=== PATIENT | male | born 1995 | race Caucasian/White ===

== ENCOUNTER 2017-04-29 00:45 | Emergency (ER) | payer BC, SELFPAY ==
[2017-04-29 00:52] VITALS: BP 134/61; PULSE 91; RESP 16; TEMP 36.7; O2SAT 99; BMI 23.1
--- NOTE | 2017-04-29 01:39 | HMH.EDEAR ---
ED Disposition Clinical Impression: Otitis media Qualifiers: Otitis media type: unspecified Chronicity: acute Qualified Code(s): H66.90 - Otitis media, unspecified, unspecified ear Disposition: Home, Self-Care Condition on Discharge: Good Instructions: DI for Otitis Media (Middle Ear Infection)-Child Additional Instructions: use meds and see pcp for follow up Prescriptions: cephALEXin [Keflex 500mg Cap] 500 mg PO TID #30 cap - Critical Care Critical Care Time: No Attestation: On 04/29/17, the high probability of a clinically significant, sudden or life threatening deterioration of the following system(s) required my full and direct attention, intervention and personal management. The time I documented below is in addition to time spent performing reported procedures but includes the following listed in this critical care notation. Medical Decision Making - Medical Records Medical records reviewed: Yes: I reviewed the patient's medical records. Vital Signs: 04/29/17 00:52 Temperature 98.1 F Temperature Source Oral Pulse Rate [Right Brachial] 91 H Respiratory Rate 16 Blood Pressure [Right Arm] 134/61 Blood Pressure Mean [Right Arm] 85 Blood Pressure Source [Right Arm] Automatic Cuff Blood Pressure Position [Right Arm] Sitting 02 Sat by Pulse Oximetry 99 Oxygen Delivery Method Room Air - Rodríguez Inquiry Pt receiving controlled substance: No Ear HPI - General Chief complaint: Ear Stated complaint: Pain in left ear Time Seen by Provider: 04/29/17 01:39 Mode of Arrival: Ambulatory Source of Information: Patient, Medical Record Limitations: No Limitations Description of Symptoms (Recalled from ER Triage Doc. by RN): WOKE MUP WITH LEFT EAR PAIN - History of Present Illness HPI Narrative: lt ear pain which startred tonight with no fever or rash and no uri sx Complaint: ear pain Location: left ear Duration: constant Severity: moderate Relieving factors: nothing Discharge from ear: no Treatment prior to arrival: none - Related Data Previous Rx's Medication Instructions Recorded cephALEXin [Keflex 500mg Cap] 500 mg PO TID #30 cap 04/29/17 Allergies Allergy/AdvReac Type Severity Reaction Status Date / Time No Known Allergies Allergy Verified 04/29/17 00:[address] [facility] History I have reviewed the patient's past medical history: Yes - *Social History Alcohol Intake: never - Psychiatric History Expresses thoughts of harming self/others: None Suicide Plan Description: No Plan ROS Obtained: Yes All systems reviewed & no additional complaints - Constitutional Constitutional: Denies fever(s) - Eyes Eyes: Denies change in vision - ENT Ears, Nose, Mouth, and Throat: Denies ear discharge, Reports otalgia, Denies sore throat, Denies throat swelling - Cardiovascular Cardiovascular: Denies chest pain at rest - Respiratory Respiratory: No chest congestion, No cough - Gastrointestinal Gastrointestingal: Denies: abdominal pain - Musculoskeletal Musculoskeletal: Denies joint pain, Denies joint stiffness - Integumentary/Breasts Skin/Breast: Denies rash - Neurologic Neurologic: Denies seizure-like activity Physical Exam - General General appearance: alert, in no apparent distress - Head Head exam: normocephalic - Eye Eye exam: Present: PERRL, EOMI - ENT ENT exam: Present: mucous membranes moist - Expanded ENT Exam TM/Canal exam: Left TM: erythema, bulging, effusion - Respiratory Respiratory exam: Absent: respiratory distress - Cardiovascular Cardiovascular exam: Present: regular rate - Neurological Exam Neurological exam: Present: alert, oriented X3, CN II-XII intact - Skin Skin exam: Absent: rash - Lymphatic Lymphatic Findings: no adenopathy
--- NOTE | 2017-04-29 01:42 | ED_ITS ---
ED Disposition Clinical Impression: Otitis media Qualifiers: Otitis media type: unspecified Chronicity: acute Qualified Code(s): H66.90 - Otitis media, unspecified, unspecified ear Disposition: Home, Self-Care Condition on Discharge: Good Instructions: DI for Otitis Media (Middle Ear Infection)-Child Additional Instructions: use meds and see pcp for follow up Prescriptions: cephALEXin [Keflex 500mg Cap] 500 mg PO TID #30 cap - Critical Care Critical Care Time: No Attestation: On 04/29/17, the high probability of a clinically significant, sudden or life threatening deterioration of the following system(s) required my full and direct attention, intervention and personal management. The time I documented below is in addition to time spent performing reported procedures but includes the following listed in this critical care notation. Medical Decision Making - Medical Records Medical records reviewed: Yes: I reviewed the patient's medical records. Vital Signs: 04/29/17 00:52 Temperature 98.1 F Temperature Source Oral Pulse Rate [Right Brachial] 91 H Respiratory Rate 16 Blood Pressure [Right Arm] 134/61 Blood Pressure Mean [Right Arm] 85 Blood Pressure Source [Right Arm] Automatic Cuff Blood Pressure Position [Right Arm] Sitting 02 Sat by Pulse Oximetry 99 Oxygen Delivery Method Room Air - Rodríguez Inquiry Pt receiving controlled substance: No Ear HPI - General Chief complaint: Ear Stated complaint: Pain in left ear Time Seen by Provider: 04/29/17 01:39 Mode of Arrival: Ambulatory Source of Information: Patient, Medical Record Limitations: No Limitations Description of Symptoms (Recalled from ER Triage Doc. by RN): WOKE MUP WITH LEFT EAR PAIN - History of Present Illness HPI Narrative: lt ear pain which startred tonight with no fever or rash and no uri sx Complaint: ear pain Location: left ear Duration: constant Severity: moderate Relieving factors: nothing Discharge from ear: no Treatment prior to arrival: none - Related Data Previous Rx's Medication Instructions Recorded cephALEXin [Keflex 500mg Cap] 500 mg PO TID #30 cap 04/29/17 Allergies Allergy/AdvReac Type Severity Reaction Status Date / Time No Known Allergies Allergy Verified 04/29/17 00:56 [facility] History I have reviewed the patient's past medical history: Yes - *Social History Alcohol Intake: never - Psychiatric History Expresses thoughts of harming self/others: None Suicide Plan Description: No Plan ROS Obtained: Yes All systems reviewed & no additional complaints - Constitutional Constitutional: Denies fever(s) - Eyes Eyes: Denies change in vision - ENT Ears, Nose, Mouth, and Throat: Denies ear discharge, Reports otalgia, Denies sore throat, Denies throat swelling - Cardiovascular Cardiovascular: Denies chest pain at rest - Respiratory Respiratory: No chest congestion, No cough - Gastrointestinal Gastrointestingal: Denies: abdominal pain - Musculoskeletal Musculoskeletal: Denies joint pain, Denies joint stiffness - Integumentary/Breasts Skin/Breast: Denies rash - Neurologic Neurologic: Denies seizure-like activity Physical Exam - General General appearance: alert, in no apparent distress - Head Head exam: n
== END 2017-04-29 02:06 | disposition home or self-care (01) ==
PROVIDERS: Emergency Provider Emergency Medicine
DX: H66.90 Otitis media, unspecified, unspecified ear (principal)
CPT/HCPCS: 99282

== ENCOUNTER 2017-05-02 17:52 | Emergency (ER) | payer BC, SELFPAY ==
[2017-05-02 18:01] VITALS: BP 150/75; PULSE 85; RESP 20; TEMP 37.1; O2SAT 100; BMI 23.1
--- NOTE | 2017-05-02 18:27 | HMH.EDUTC ---
[facility] [place] Clinical Impression: Left otitis media with spontaneous rupture of eardrum Disposition: Home, Self-Care Condition on Discharge: Good Instructions: DI for Tympanic Membrane Perforation-Adult Additional Instructions: The tylenol #3 is likely what is making you drowsy and nauseated. Pt denies knowing this was a narcotic and doesn't plan to take it any longer. Will try tylenol/motrin PRN for pain. Monitor temp and FU if fever develops Under no circumstances are you to put anything in your ear unless a provider tells you to do so. You no longer have an ear drum to protect inside your ear. This includes water. Try to avoid any water in your ear while showering and do NOT go under water. STOP keflex and Start augmentin antibiotic tomorrow. You had a rocephin injection tonight in clinic. Augmentin Can cause GI upset. probiotics help. The young lady with you reported knowing what these were. You need to follow up with ENT (senior research scientist) ELIZABETH. Dr. Caraballo is in clinic on . I spoke to his nurse oliver. Be here at the specialty clinic at 1200 and he will fit you in. This follow up is VERY important!!!! If you have any questions call specialty clinic [phone] from 8-5pm Prescriptions: Amoxicillin/Potassium Clav [Augmentin 875-125 Tablet] 1 tab PO Q12H #20 tab Referrals: Mack Caraballo MD [Staff Physician] - (Immediately for new or worsening symptoms but you have an appt with Dr. Caraballo on , May 04. Be there at noon and he is willing to work you in. This follow up is VERY important.) Time of Disposition: 18:59 Medical Decision Making Vital Signs: 05/02/17 18:01 Temperature 98.7 F Temperature Source Temporal Artery Scan Pulse Rate [Right] 85 Respiratory Rate 20 Blood Pressure [Right Arm] 150/75 Blood Pressure Mean [Right Arm] 100 Blood Pressure Source [Right Arm] Automatic Cuff Blood Pressure Position [Right Arm] Sitting 02 Sat by Pulse Oximetry 100 Oxygen Delivery Method Room Air Orders (Tests/Meds): ED MEDICATIONS Discontinued Medications Generic Name Dose Route Start Last Admin Trade Name Freq PRN Reason Stop Dose Admin Ceftriaxone Sodium 1 gm 05/02/17 18:41 05/02/17 18:57 Rocephin 1gm Vial IM 05/02/17 18:42 1 gm ONCE ONE Administration Lidocaine HCl 0 ml 05/02/17 18:41 05/02/17 18:58 Lidocaine 1% 10ml Mdv IM 05/02/17 18:42 2 ml ONCE ONE Administration - Rodríguez Inquiry Pt receiving controlled substance: No [facility] [place] - General Stated complaint: Left Ear Pain, Fatigue, LADD Time Seen by Provider: 05/02/17 18:27 Mode of Arrival: Ambulatory Source of Information: Patient Limitations: No Limitations Description of Symptoms (Recalled from Triage Doc. by RN): SEEN HERE FOR EAR INFECTION, ON ABX, C/O EARACHE HEENT Symptoms (Recalled from RN notes): Yes Resp Symptoms (Recalled from RN notes): No Skin Symptoms (Recalled from RN notes): No MS Symptoms (Recalled from RN notes): No Functional Status (Recalled from RN notes): N - History of Present Illness Provider Complaint: c/o left ear pain that radiates throughout left side of head/face. Started when he woke up Monday morning. Was seen in ER. Dx left OM and started on keflex TID x 10 days and tylenol #3 for pain. Pain improved. Last tylenol #3 this morning. Overall symptoms worse. Now nausea, fatigue, pain radiating is new, and copious amounts of bloody and yellow drainage from ear. Can't remember when but reports It just felt like it exploded one time . - Related Data Home Medications Medication Instructions Recorded Confirmed cephALEXin [Keflex 500mg Cap] 500 mg PO TID 05/02/17 05/02/17 Previous Rx's Medication Instructions Recorded Amoxicillin/Potassium Clav 1 tab PO Q12H #20 tab 05/02/17 [Augmentin 875-125 Tablet] Allergies Allergy/AdvReac Type Severity Reaction Status Date / Time No Known Allergies Allergy Verified 04/29/17 00:56 - Worker's Comp Is this a Wo
== END 2017-05-02 19:07 | disposition home or self-care (01) ==
PROVIDERS: Emergency Provider Nurse Practitioner Family; PCP Physician Assistant
DX: H66.92 Otitis media, unspecified, left ear (principal); F17.210 Nicotine dependence, cigarettes, uncomplicated
CPT/HCPCS: 99201